=== PATIENT | female | born 1955 ===

== ENCOUNTER 2016-09-29 09:03 | Day surgery (SDC) | payer BC ==
[~2016-09-29 09:03] MED LIST: Buffered Lidocaine 0.9% SYRIN* 5 ML/SYR SYRINGE INTRADERM ONE; Famotidine IV* 10 MG/ML 2 ML (20 mg) IV ONE; Morphine INJ* 2 MG/ML 1 ML SYRINGE IV PRN; PROCHLORPERAZINE INJ 5 MG/ML 2 ML VIAL IV PRN; Scopolamine 1.5 mg* PATCH TRANSDERM PRN; fentaNYL* 50 MCG/ML 2 ML VIAL (100 MCG VIAL) IV PRN; oxyCODONE/Acetamin 5/325 MG* TAB PO PRN
[2016-09-29] MEDS ORDERED: Buffered Lidocaine 0.9% SYRIN* 5 ML/SYR SYRINGE ONE (09:12)
[2016-09-29] MEDS ORDERED: Famotidine IV* 10 MG/ML 2 ML (20 mg) ONE (09:12)
[2016-09-29] MEDS ORDERED: fentaNYL* 50 MCG/ML 2 ML VIAL (100 MCG VIAL) ONE (09:34)
[2016-09-29] MEDS ORDERED: Midazolam* 1 MG/ML 5 ML VIAL (5 MG) ONE (09:34)
[2016-09-29] MEDS ORDERED: KETAMINE HCL* 50 MG/ML 10 ML VIAL ONE (09:34)
[2016-09-29] MEDS ORDERED: Ondansetron INJ* 2 MG/ML VIAL ONE (10:30)
[2016-09-29] MEDS ORDERED: Dexamethasone IV* 4 MG/ML 1 ML (4 MG) ONE (10:30)
[2016-09-29] MEDS ORDERED: PROCHLORPERAZINE INJ 5 MG/ML 2 ML VIAL ONE (10:30)
[2016-09-29] MEDS ORDERED: Ketorolac INJ* 30 MG/ML 1 ML VIAL ONE (10:30)
[2016-09-29] MEDS ORDERED: Lidocaine 2% PF * 5 ML VIAL ONE (10:30)
[2016-09-29] MEDS ORDERED: Propofol* 10 MG/ML 20 ML BTL IV PUSH ONE (10:30)
[2016-09-29] MEDS ORDERED: Ibuprofen TAB* 600 MG PO PRN (11:31)
[2016-09-29 12:13] VITALS: BP 122/81
--- NOTE | 2016-09-29 21:36 | OP ---
BRIEF OPERATIVE REPORT: DATE OF OPERATION: 09/29/16 - [facility] DATE OF : 59 SURGEON: Missy Melendrez MD ANESTHESIOLOGIST: Dr. Espinoza. ANESTHESIA: General endotracheal anesthesia. PRE-OP DIAGNOSIS: Postmenopausal bleeding. POST-OP DIAGNOSIS: Postmenopausal bleeding. OPERATIVE PROCEDURE: Dilation, hysteroscopy, curettage. ESTIMATED BLOOD LOSS: Minimal, less than 20 cc. FINDINGS: Enlarged fibroid uterus, no adnexal masses palpated, midline cervix, multiple polypoid masses arising from the fundus, uterus sounds to 8.5. COMPLICATIONS: None. SPONGE COUNT: Correct x2. CONDITION: The patient was brought to recovery room, awake and in stable condition. DESCRIPTION OF PROCEDURE: The patient was brought to the operating room, when general anesthesia was found to be adequate the patient was prepped and draped in usual sterile fashion in the dorsal lithotomy position. Time-out was performed. Exam under anesthesia was performed with the above findings noted. Weighted speculum was placed in the vagina. The anterior lip of the cervix was grasped with the single tooth tenaculum and the cervix was gently and easily dilated with graduated Stearns dilators. The hysteroscope was introduced with the above findings noted. Polyp forceps was gently advanced and at least two large polypoid masses were removed. Curettage was then performed. The pathology specimens were sent in formalin to Pathology. The single-tooth tenaculum was removed from the anterior lip of the cervix. Excellent hemostasis was noted. All instruments removed from the vagina and the patient was brought to the recovery room awake and in stable condition. [id number] #: [id number] MTDD
[2016-10-02] MEDS ORDERED: Scopolomine PATCH Remove* 1 NOTE MISC PATCH OFF ONE (05:58)
== END 2016-09-29 12:17 | disposition home or self-care (01) ==
LOC: OR 09:03
PROVIDERS: ATTEND Obstetrics & Gynecology
DX: N84.0 Polyp of corpus uteri (principal); N95.0 Postmenopausal bleeding; E78.5 Hyperlipidemia, unspecified; N85.8 Other specified noninflammatory disorders of uterus; Z88.1 Allergy status to other antibiotic agents
CPT/HCPCS: 88305; J0780; J1100; J1885; J2250; J2405; J2704; J3010